=== PATIENT | male | born 1970 | race Caucasian/White ===

== ENCOUNTER 2025-03-17 18:50 | Emergency (ER) | payer SELFPAY ==
[2025-03-17 18:51] VITALS: BP 150/96; PULSE 86; RESP 16; TEMP 36.4; O2SAT 99; BMI 34.7
== END 2025-03-17 21:00 | disposition home or self-care (01) ==
PROVIDERS: Emergency Provider Surgery; Visit Provider Surgery
DX: R06.00 Dyspnea, unspecified (principal); R60.9 Edema, unspecified
CPT/HCPCS: 93005; 99282